=== PATIENT | female | born 1990 | race Caucasian/White ===

== ENCOUNTER 2018-01-17 07:28 | Emergency (ER) | payer OTHER ==
--- NOTE | 2018-01-17 07:38 | EDM.PDOC ---
ED HPI GENERAL MEDICAL PROBLEM - General Stated Complaint: 10 WKS PG, BLEEDING Time Seen by Provider: 01/17/18 07:45 Source of Information: Reports: Patient, RN, RN Notes Reviewed History Limitations: Reports: No Limitations - History of Present Illness INITIAL COMMENTS - FREE TEXT/NARRATIVE: Pt presents to the ER with c/o vaginal bleeding at 10 weeks . Patient states she feels she began bleeding during the night while she was sleeping. This morning she states there was a "gush" of blood. Patient denies wearing a pad at this time. Patient states she is anxious, normally takes Zoloft, but has not taken it in 2 days. Patient states she has been seen at [facility] on Jan 02 and an ultrasound was done. She states she is scheduled to see Dr. Thomas next week Saturday. Patient denies cramping. Patient also denies any further health problems. Patient states she was taking Welbutrin, which she stopped taking a few weeks ago. Onset: Today, Sudden - Related Data Allergies Allergy/AdvReac Type Severity Reaction Status Date / Time No Known Allergies Allergy Verified 01/17/18 07:48 Home Meds: Home Meds FLUoxetine HCl [Fluoxetine HCl] 20 mg PO DAILY 01/17/18 [History] ED ROS GENERAL - Review of Systems Review Of Systems: ROS reveals no pertinent complaints other than HPI. ED EXAM - Physical Exam Exam: See Below Exam Limited By: No Limitations General Appearance: Alert, WD/WN, No Apparent Distress, Anxious Eye Exam: Bilateral Eye: EOMI, Normal Inspection Ears: Normal External Exam, Hearing Grossly Normal Nose: Normal Inspection Throat/Mouth: Normal Inspection, Normal Voice, No Airway Compromise Head: Atraumatic, Normocephalic Neck: Normal Inspection, Supple, Non-Tender, Full Range of Motion Respiratory/Chest: No Respiratory Distress, Lungs Clear, Normal Breath Sounds, No Accessory Muscle Use, Chest Non-Tender Cardiovascular: Normal Peripheral Pulses, Regular Rate, Rhythm, No Edema, No Gallop, No JVD, No Murmur, No Rub GI/Abdominal Exam: Normal Bowel Sounds, Soft, Non-Tender, No Organomegaly, No Distention Rectal Exam: Deferred Back Exam: Normal Inspection, Full Range of Motion Extremities: Normal Inspection, Normal Range of Motion, Non-Tender, No Pedal Edema, Normal Capillary Refill Neurological: Alert, Oriented Psychiatric: Anxious Skin Exam: Warm, Dry, Intact, Normal Color, No Rash Lymphatic: No Adenopathy Course - Vital Signs Last Recorded V/S: Last Vital Signs Temp 99.1 F 01/17/18 07:31 Pulse 105 H 01/17/18 07:31 Resp 15 01/17/18 07:31 BP 135/84 01/17/18 07:31 Pulse Ox 96 01/17/18 07:31 - Orders/Labs/Meds Orders: Active Orders 24 hr Category Date Time Status DRUG SCREEN URINE BIORAD [URCHEM] Stat Lab 01/17/18 08:22 Ordered UA W/MICROSCOPIC [URIN] Stat Lab 01/17/18 08:22 Ordered Labs: Laboratory Tests 01/17/18 01/17/18 01/17/18 Range/Units 07:58 07:58 07:58 WBC 7.5 (5.0-10.0) 10^3/uL RBC 4.23 (4.2-5.4) 10^6/uL Hgb 11.9 L (12.0-16.0) g/dL Hct 35.4 L (37.0-47.0) % MCV 83.7 (80-100) fL MCH 28.1 (27.0-34.0) pg MCHC 33.6 (33.0-35.0) g/dL Plt Count 283 (150-450) 10^3/uL Neut % (Auto) 74.6 (42.2-75.2) % Lymph % (Auto) 17.2 L (20.5-50.1) % [place] % (Auto) 7.0 (2-8) % Eos % (Auto) 1.1 (1.0-3.0) % Baso % (Auto) 0.1 (0.0-1.0) % Sodium 135 (135-145) mmol/L Potassium 3.6 (3.6-5.0) mmol/L Chloride 105 (101-111) mmol/L Carbon Dioxide 22.0 (21.0-31.0) mmol/L Anion Gap 11.6 BUN 9 (7-18) mg/dL Creatinine 0.4 L (0.6-1.3) mg/dL Est Cr Clr Drug Dosing 154.43 mL/min Estimated GFR (MDRD) > 60 BUN/Creatinine Ratio 22.50 Glucose 90 (74-105) mg/dL Calcium 8.9 (8.4-10.2) mg/dl Total Bilirubin 0.3 (0.2-1.0) mg/dL AST 24 (10-42) IU/L ALT 19 (10-60) IU/L Alkaline Phosphatase 43 (42-121) IU/L Total Protein 7.0 (6.7-8.2) g/dl Albumin 4.0 (3.2-5.5) g/dl Globulin 3.0 Albumin/Globulin Ratio 1.33 HCG, Quant > 1358 H (0-25) mIU/ml Beta HCG, Quant 57316 mIU/ml Urine Color (YELLOW) Urine Appearance (CLEAR) Urine pH (5.0-9.0) Ur Specific [place] (1.005-1.030) Urine Protein (NEGATIVE) Urine Glucose (UA) (NEGATIVE) Urine Ketones (NEGATIVE) Urine Occult Blood (NEGATIVE) Urine Nitrite (NEGATIVE) Urine Bilirubin (NEGATIVE) Urine Urobilinogen (0.2-1.0) mg/dL Ur Leukocyte Esterase (NEGATIVE) Urine RBC /HPF Urine WBC (0-5/HPF) /HPF Ur Epithelial Cells /HPF Urine Bacteria (0-FEW/HPF) /HPF Urine Opiates Screen (NEGATIVE) Ur Oxycodone Screen (NEGATIVE) Urine Methadone Screen (NEGATIVE) Ur Barbiturates Screen (NEGATIVE) U Tricyclic Antidepress (NEGATIVE) Ur Phencyclidine Scrn (NEGATIVE) Ur Amphetamine Screen (NEGATIVE) U Methamphetamines Scrn (NEGATIVE) Urine MDMA Screen (NEGATIVE) U Benzodiazepines Scrn (NEGATIVE) Urine Cocaine Screen (NEGATIVE) U Marijuana (THC) Screen (NEGATIVE) Ethyl Alcohol < 5 mg/dL 01/17/1818 Range/Units 08:22 08:22 WBC (5.0-10.0) 10^3/uL RBC (4.2-5.4) 10^6/uL Hgb (12.0-16.0) g/dL Hct (37.0-47.0) % MCV (80-100) fL MCH (27.0-34.0) pg MCHC (33.0-35.0) g/dL Plt Count (150-450) 10^3/uL Neut % (Auto) (42.2-75.2) % Lymph % (Auto) (20.5-50.1) % [place] % (Auto) (2-8) % Eos % (Auto) (1.0-3.0) % Baso % (Auto) (0.0-1.0) % Sodium (135-145) mmol/L Potassium (3.6-5.0) mmol/L Chloride (101-111) mmol/L Carbon Dioxide (21.0-31.0) mmol/L Anion Gap BUN (7-18) mg/dL Creatinine (0.6-1.3) mg/dL Est Cr Clr Drug Dosing mL/min Estimated GFR (MDRD) BUN/Creatinine Ratio Glucose (74-105) mg/dL Calcium (8.4-10.2) mg/dl Total Bilirubin (0.2-1.0) mg/dL AST (10-42) IU/L ALT (10-60) IU/L Alkaline Phosphatase (42-121) IU/L Total Protein (6.7-8.2) g/dl Albumin (3.2-5.5) g/dl Globulin Albumin/Globulin Ratio HCG, Quant (0-25) mIU/ml Beta HCG, Quant mIU/ml Urine Color Yellow (YELLOW) Urine Appearance Clear (CLEAR) Urine pH 7.0 (5.0-9.0) Ur Specific [place] 1.010 (1.005-1.030) Urine Protein Negative (NEGATIVE) Urine Glucose (UA) Negative (NEGATIVE) Urine Ketones Negative (NEGATIVE) Urine Occult Blood Small H (NEGATIVE) Urine Nitrite Negative (NEGATIVE) Urine Bilirubin Negative (NEGATIVE) Urine Urobilinogen 0.2 (0.2-1.0) mg/dL Ur Leukocyte Esterase Negative (NEGATIVE) Urine RBC 0-5 /HPF Urine WBC Not seen (0-5/HPF) /HPF Ur Epithelial Cells Few /HPF Urine Bacteria Not seen (0-FEW/HPF) /HPF Urine Opiates Screen Negative (NEGATIVE) Ur Oxycodone Screen Negative (NEGATIVE) Urine Methadone Screen Negative (NEGATIVE) Ur Barbiturates Screen Negative (NEGATIVE) U Tricyclic Antidepress Negative (NEGATIVE) Ur Phencyclidine Scrn Negative (NEGATIVE) Ur Amphetamine Screen Negative (NEGATIVE) U Methamphetamines Scrn Negative (NEGATIVE) Urine MDMA Screen Negative (NEGATIVE) U Benzodiazepines Scrn Negative (NEGATIVE) Urine Cocaine Screen Negative (NEGATIVE) U Marijuana (THC) Screen Negative (NEGATIVE) Ethyl Alcohol mg/dL Departure - Departure Time of Disposition: 09:03 Disposition: Home, Self-Care 01 Condition: Fair Clinical Impression: Threatened - Discharge Information *PRESCRIPTION DRUG MONITORING PROGRAM REVIEWED*: No *COPY OF PRESCRIPTION DRUG MONITORING REPORT IN PATIENT YOSELIN: No Instructions: Vaginal Bleeding During , First Trimester Additional Instructions: Follow up with Dr. Mullen today at [facility] - My Orders Last 24 Hours: My Active Orders 01/17/18 08:22 DRUG SCREEN URINE BIORAD [URCHEM] Stat UA W/MICROSCOPIC [URIN] Stat - Assessment/Plan Last 24 Hours: My Active Orders 01/17/18 08:22 DRUG SCREEN URINE BIORAD [URCHEM] Stat UA W/MICROSCOPIC [URIN] Stat
[2018-01-17 08:28] LABS: ANION GAP 11.6; CHLORIDE,CL 105 mmol/L (101-111); SODIUM,NA 135 mmol/L (135-145)
== END 2018-01-17 09:11 | disposition home or self-care (01) ==
LOC: DL.ED 07:28
DX: O20.0 Threatened abortion (principal); Z3A.10 10 weeks gestation of pregnancy; Z79.899 Other long term (current) drug therapy
CPT/HCPCS: 36415; 80053; 80305; 81001; 84702; 85025; 99284; G0480; 99283

== ENCOUNTER 2018-07-20 01:46 | Inpatient (IN) | payer OTHER ==
[2018-07-20] MEDS ORDERED: fentaNYL 100 MCG/2 ML SDV IVPUSH PRN (04:04)
[2018-07-20] MEDS ORDERED: Acetaminophen 325 MG Tab PO PRN ×2 (04:04→21:51)
[2018-07-20] MEDS ORDERED: Carboprost Tromethamine 250 MCG/1 ML Amp IM PRN (04:04)
[2018-07-20] MEDS ORDERED: Tranexamic Acid 1,000 MG in Sodium Chloride 0.9% 100 ML IV PRN ×3 (04:04→21:51)
[2018-07-20] MEDS ORDERED: Sodium Chloride 0.9% 10 ML Syringe FLUSH PRN ×2 (04:04→17:03)
[2018-07-20] MEDS ORDERED: Lactated Ringers 1,000 ML IV ONE (04:04)
[2018-07-20] MEDS ORDERED: Methylergonovine 0.2 MG/1 ML Amp IM PRN ×2 (04:04→21:51)
[2018-07-20] MEDS ORDERED: Misoprostol 400 MCG (4 X 100 MCG TAB) RECTAL PRN ×2 (04:04→21:51)
[2018-07-20] MEDS ORDERED: Ondansetron 4 MG/2 ML SDV IV PRN ×2 (04:04→21:51)
[2018-07-20] MEDS ORDERED: Lidocaine 1% 30 ML SDV INJECT PRN (04:04)
[2018-07-20] MEDS ORDERED: Lactated Ringers 1,000 ML IV SCH ×3 (04:15→21:51)
[2018-07-20] MEDS ORDERED: Oxytocin/Normal Saline 30 UNIT/500 ML BAG IV SCH ×2 (04:15→09:30)
[2018-07-20] MEDS: Lactated Ringers 1,000 ML IV SCH ×4 (06:12→17:07)
[2018-07-20] MEDS ORDERED: EPINEPHrine 1 MG/ML SDV ONE ×2 (07:04→13:21)
[2018-07-20] MEDS ORDERED: fentaNYL 100 MCG/2 ML SDV ONE (07:04)
--- NOTE | 2018-07-20 07:58 | PCM.PRNOTE ---
- Free Text/Narrative Note: Requested to provide analgesia to full term patient in severe pain. Upon entering the room, patient is sitting on edge of bed complaining of severe abdominal/pelvic pain and discomfort. Procedure was discussed with patient including adverse outcomes and expectations. Pt consented to analgesia, SAB/ IT. Pt placed into a proper sitting position. Landmarks for SAB/IT were identified and marked. Hands were washed and appropriate PPE was applied. Back was prepped with betadine x3. A sterile, transparent, fenestrated drape was applied. Excess betadine was removed. Using 3 mL of a 1% lidocaine solution , a skin wheel was placed at the L2/L3 interspace. A 24 ga (4 inch) Pencan spinal needle was inserted until positive for CSF. Negative for heme or paresthesias. Injected fentanyl 30 mcg, sufentanil 25 mcg, and 5.6 mg of a 0.75 % bupivacaine solution with an epi wash. Pt was placed left lateral position for approximately 20 minutes. There were zero complications or adverse outcomes. Will continue to monitor. Procedure Date & Time: 07/20/18 [id number]
--- NOTE | 2018-07-20 11:22 | PCM.SN ---
- Free Text/Narrative Note: OB History and Physical 07/20/18 Chief Complaint: leaking fluid HPI: Purvi is a 27 year old at 37w0d (MELLO 08/10/18) who presents with complaints of leaking of fluid for the last 2 days. She has been wearing panty liners and pads to absorb the leaking. She has been cramping since her last appointment, but they have become more regular and more painful. She reports active movement. Nitrazine was positive and amnisure was sent for confirmation of SROM. She was found to be ruptured and rosario regularly on the monitor. ROS: Negative for headache, nausea, vomiting, diarrhea, fever, chills, hematuria , dysuria or bleeding per vagina. Medical Hx: acne, short stature Surgical Hx: none Family Hx: no history of bleeding/clotting disorders, defects, cystic fibrosis or down syndrome OB Hx: G1 Labs: OB Panel: Blood Type: A Positive Rubella: Immune HBSAg: Nonreactive GBS: Negative Gonorrhea/Chlamydia: Negative HIV: Nonreactive RPR: Nonreactive Physical Exam: HR: 116, BP 140/80, O2sat 97% on room air Gen: No distress CV: Well-perfused, 2+ distal pulses, regular rate and rhythm, no audible murmurs Resp: Non-labored, symmetrical chest expansion, clear to auscultation Abd: gravid, soft, non tender Ext: Moves all extremities, no edema. SVE: 4.5/50/-3 FHT: 135, moderate variability, accelerations present, no decelerations CTX: Q 2-3 mins Assessment: Purvi is a 27 year old at 37w0d (MELLO 08/10/18) who presents with complaints of leaking of fluid for the last 2 days and was found to be ruptured and in active labor. Cat I Strip. Plan: - admit for labor - routine cares - patient may have intrathecal when/if desired
[2018-07-20] MEDS ORDERED: Bupivacaine 0.75%/D5W 2 ML Amp ONE (13:21)
--- NOTE | 2018-07-20 14:07 | PCM.PRNOTE ---
- Free Text/Narrative Note: Requested to provide analgesia to full term patient in severe pain. Upon entering the room, patient is lying in bed complaining of severe abdominal/ pelvic pain and discomfort. Procedure was rediscussed with patient including adverse outcomes and expectations, again. Pt consented to analgesia, SAB/IT. Pt placed into a proper sitting position. Landmarks for SAB/IT were identified and marked. Hands were washed and appropriate PPE was applied. Back was prepped with betadine x3. A sterile, transparent, fenestrated drape was applied. Excess betadine was removed. Using 3 mL of a 1% lidocaine solution, a skin wheel was placed at the L2/L3 interspace. A 24 ga (4 inch) Pencan spinal needle was inserted until positive for CSF. Negative for heme or paresthesias. Injected sufentanil 10 mcg, and 9 mg of a 0.75% bupivacaine solution with an epi wash. Pt was placed left lateral position for approximately 20 minutes. There were zero complications or adverse outcomes. Will continue to monitor. Procedure Date & Time: 07/20/18 [id number]
[2018-07-20] MEDS ORDERED: Citric Acid/Sodium Citrate Solution 30 ML Cup PO ONE (17:03)
[2018-07-20] MEDS ORDERED: ceFAZolin 2 GM in Premix Bag 1 BAG IV ONE (17:03)
--- NOTE | 2018-07-20 17:11 | PCM.SN ---
- Free Text/Narrative Note: Sub: Patient is starting to have more back pain as her second intrathecal is wearing off. She is emotionally drained at this time. Obj: Vitals reviewed and stable NST: FHR 150, moderate variability, variable decelerations, accelerations noted Contractions: coupling every 3-5 minutes SVE: 6/100/-2 Ass: Purvi is a 37w0d G1 who presented with SROM and had progressed with augmentation of pitocin to 8cm dilation who is now back to 6cm dilation. Plan: Discussed delivery options with Purvi including risks, benefits and alternatives. Will proceed with primary low transverse section for failure to progress in first stage of .
[2018-07-20] MEDS ORDERED: Oxytocin/Normal Saline 60 UNIT/1,000 ML BAG ONE (17:19)
--- NOTE | 2018-07-20 19:04 | PCM.PRNOTE ---
- Free Text/Narrative Note: OPERATIVE REPORT Date: 07/20/18 Procedure: Primary low transverse section Start: 1749 Stop: 1824 Surgeon: Rosy Thomas MD Police Liaison Officer: Dr. Mancilla Pre-Operative Diagnosis: 27 year old at 37w0d EGA Unknown SROM time Failure to progress in labor Post-Operative Diagnosis: same as above s/p section Anesthesia: Spinal Specimens: none Complications: none apparent Drains: almeida catheter with clear urine output EBL: 500 mL IVF: see CLIENT CARE SPECIALIST documentation Findings: male , OP presentation, face presentation at uterine incision, nuchal x1 Indication for Procedure: failure to progress Procedure in Detail: The patient was brought to the operating room where spinal anesthesia was administered. She was then prepped and draped in routine fashion in dorsal supine position with a leftward tilt. Almeida catheter and SCDs were placed. Incision was made through the skin and carried sharply to the level of the fascia, which was then incised transversely in the midline. This incision was then carried bilaterally with scissors. The fascia was tented up with Hoa clamps and dissected off the underlying rectus musculature with sharp and blunt technique in both the superior and inferior direction. The rectus musculature was then in the midline and the peritoneum was entered in the midline with care being taken to avoid any underlying bowel and/or bladder tissue. The operative opening was then extended with manual traction. The peritoneal reflection was identified and the bladder was dissected off the lower uterine segment with sharp and blunt technique. The lower uterine segment was incised transversely in the midline to the level of the amniotic sac with clear fluid, then bluntly widened. The infants head was elevated out of the maternal pelvis and was delivered through the incision. The remainder of the infant was then delivered. Bulb suctioning was performed on the operative field. The cord was clamped and cut in standard fashion and then the infant was handed over to the awaiting nursery staff. The placenta was delivered via gentle traction on umbilical cord with concomitant uterine massage followed by manual extraction. The uterus was cleared of remaining products of conception with a dry lap. The uterine incision was closed with a interlocking layer of 0-Vicryl followed by an imbricating layer of the same material. The incision was inspected and complete hemostasis was achieved. The abdomen was then cleared of clot and debris. Hemostasis of all incised surfaces was confirmed. The fascia was then closed with 0-PDS. It was ensured that no underlying abdominal contents were closed in the incision. The skin closed with 4-0 Monocryl on a John needle. The patient did receive Ancef preoperatively. Sponge and instrument counts were reported as correct times two. Patient tolerated procedure well and was taken to PACU in stable condition.
[2018-07-20] MEDS ORDERED: diphenhydrAMINE 50 MG/ML SDV IVPUSH PRN (21:51)
[2018-07-20] MEDS ORDERED: ePHEDrine 50 MG/ML SDV IVPUSH PRN (21:51)
[2018-07-20] MEDS ORDERED: Acetaminophen/oxyCODONE 325-5 MG Tab PO PRN (21:51)
[2018-07-20] MEDS ORDERED: Carboprost Tromethamine 250 MCG/1 ML Amp IM ONE (21:51)
[2018-07-20] MEDS ORDERED: Naloxone 2 MG/2 ML Syringe IVPUSH PRN (21:51)
[2018-07-21] MEDS: Ketorolac 30 MG/ML SDV IVPUSH SCH ×3 (00:25→13:08)
[2018-07-21] MEDS: Simethicone 80 MG Tab.Chew PO SCH ×5 (01:25→21:24)
[2018-07-21] MEDS ORDERED: Calcium Carbonate 500 MG Tab.Chew PO PRN (04:02)
--- NOTE | 2018-07-21 08:18 | PCM.SN ---
<Judi Joyce - Last Filed: 07/21/18 17:14> - Free Text/Narrative Note: Date of Service: 07/21/18 Subjective: Today is POD#1 for Purvi, a 28yo G1 now P1001 s/p LTCS with subsequent delivery of healthy baby female. She still has her vasquez catheter in and has not been ambulating. Tolerating diet well, although felt nauseous last night. Has some incisional pain and uterine cramping, worse when . Although, the pain is controlled with current oral medications. She denies any fever, chills, chest pain, shortness of breath. Is on demand, and states baby has a good latch and is not painful. Objective: Vitals: T 99.7F, P 107, R 16, BP 98/43, O2 100% General: Well appearing female, sitting upright in bed baby, in no apparent distress HEENT: EOMI, mucus membranes pink and moist Neck: Supple Cardio: RRR, no murmurs, rubs or gallops Resp: Lungs CTA b/l, no wheezing or rhonchi Abdomen: Tenderness near incision. No erythema or edema noted. Dressing intact and dry. Uterus 2 fingerbreadths above the umbilicus and firm. Extremities: Pedal edema. No bruising or cyanosis. SCD's in place. Labs: Laboratory Tests 07/21/18 06:25 WBC 14.2 H RBC 2.97 L Hgb 8.5 L D Hct 25.7 L MCV 86.5 Plt Count 190 D Assessment: 1. 28 yo POD#1 s/p primary LTCS 2. A+, GBS-, RI 3. 4. Anemia 5. Pedal Edema Plan: 1. Continue routine cares 2. D/C vasquez this AM 3. Encouraged ambulation, will help with pedal edema 4. Continue 5. Watching for symptoms of anemia (dizziness, lightheaded) especially while ambulating. 6. Anticipate discharge tomorrow or Saturday Stacyjosey Maria Del Carmen, MS-4 <Rosy Thomas - Last Filed: 07/23/18 09:04> - Free Text/Narrative Note: Patient was personally seen and examined with the medical student. I reviewed the noted scribed on my behalf and necessary changes have been made to reflect my opinion on the history, exam, assessment, and plan. - Rosy Thomas MD
[2018-07-21] MEDS: Docusate Sodium 100 MG Cap PO PRN ×2 (08:51→21:24)
[2018-07-21] MEDS: Prenatal Multivitamin with Calcium/Folic Acid/Iron Tab PO SCH (08:51)
[2018-07-21] MEDS ORDERED: Oxytocin/Normal Saline 30 UNIT/500 ML BAG IV ONE (10:46)
[2018-07-21] MEDS: Acetaminophen/oxyCODONE 325-5 MG Tab PO PRN ×3 (11:15→21:23)
[2018-07-21] MEDS ORDERED: Bupivacaine 0.75%/D5W 2 ML Amp ONE ×3 (14:57→16:46)
[2018-07-21] MEDS ORDERED: Lactated Ringers 1,000 ML IV ONE (14:57)
[2018-07-21] MEDS ORDERED: Ketorolac 30 MG/ML SDV IVPUSH ONE (14:57)
[2018-07-21] MEDS ORDERED: EPINEPHrine 1 MG/ML SDV ONE ×2 (14:57→16:46)
[2018-07-21] MEDS ORDERED: Ondansetron 4 MG/2 ML SDV IV ONE (14:57)
--- NOTE | 2018-07-21 15:47 | PCM.SN ---
- Free Text/Narrative Note: Postoperative Day #1 Progress Note S: The patient reports that she is doing well overall. She is not yet ambulating. Her pain is well controlled and reports that her bleeding is minimal. She is tolerating her diet without issue. She is passing flatus. She is without problem. No nausea, vomiting, diarrhea, shortness of breath, or other complaints. O: Physical exam: Vitals stable Gen: No distress CV: Well-perfused, 2+ distal pulses Resp: Non-Labored, symmetrical chest expansion Abd: Incision is clean, dry, and intact. Fundus is firm and below umbilicus. Ext: Moves all extremities. Assessment: Purvi is a 27 year old G1 now P1 status post primary low transverse ( POD#1) who is doing well. Plan: - Encourage ambulation. - Will allow to shower when ambulating without assistance - Remove vasquez when ambulating. - Advance diet - Routine Nursing Rosy Thomas MD
[2018-07-21] MEDS ORDERED: fentaNYL 100 MCG/2 ML SDV ITHECAL ONE (16:46)
[2018-07-21] MEDS: Ibuprofen 800 MG Tab PO PRN (21:23)
[2018-07-22] MEDS: Acetaminophen/oxyCODONE 325-5 MG Tab PO PRN ×5 (02:59→21:04)
[2018-07-22] MEDS: Docusate Sodium 100 MG Cap PO PRN ×2 (08:53→21:03)
[2018-07-22] MEDS: Simethicone 80 MG Tab.Chew PO SCH ×4 (08:53→21:03)
[2018-07-22] MEDS: Ibuprofen 800 MG Tab PO PRN ×2 (08:53→17:27)
[2018-07-22] MEDS: Prenatal Multivitamin with Calcium/Folic Acid/Iron Tab PO SCH (08:53)
--- NOTE | 2018-07-22 17:28 | PCM.PN ---
<Aiyana Joycejosey - Last Filed: 07/22/18 17:23> - General Info Date of Service: 07/22/18 Subjective Update: POD #2 for Purvi, a 28 yo G1 now P1 s/p primary LTCS for malpresentation and failure to progress. She has been ambulating and showered yesterday. is going well, although is cluster feeding causing some nipple pain. She has been using a breastshield today. Tolerating diet well. Passing flatus. Some incisional pain,b ut well controlled on oral medications. No acute concerns. Functional Status: Reports: Pain Controlled, Tolerating Diet, Ambulating - Review of Systems General: Denies: Fever, Weakness, Chills Pulmonary: Denies: Shortness of Breath, Cough, Wheezing Cardiovascular: Denies: Chest Pain Gastrointestinal: Reports: Flatus. Denies: Constipation Genitourinary: Denies: Dysuria, Frequency, Burning Neurological: Denies: Dizziness, Headache - Patient Data Vitals - Most Recent: Last Vital Signs Temp 98.6 F 07/22/18 12:00 Pulse 104 H 07/22/18 12:00 Resp 16 07/22/18 12:00 BP 113/73 07/22/18 12:00 Pulse Ox 96 07/22/18 12:00 Weight - Most Recent: 58.513 kg Med Orders - Current: Current Medications Acetaminophen (Tylenol) 650 mg PO Q6H PRN PRN Reason: mild pain or fever Calcium Carbonate/Glycine (Tums) 1,000 mg PO Q2H PRN PRN Reason: Heartburn Last Admin: 07/21/18 05:14 Dose: 1,000 mg Diphenhydramine HCl (Benadryl) 25 mg IVPUSH Q6H PRN PRN Reason: Itching or Nausea Docusate Sodium (Colace) 100 mg PO Q12H PRN PRN Reason: Constipation Last Admin: 07/22/18 08:53 Dose: 100 mg Ephedrine Sulfate (Ephedrine Sulfate) 5 mg IVPUSH SEECOMMENT PRN PRN Reason: Other Lactated Ringer's (Ringers, Lactated) 1,000 mls @ 125 mls/hr IV ASDIRECTED AGUSTIN Last Admin: 07/21/18 00:27 Dose: 125 mls/hr Tranexamic Acid 1,000 mg/ (Sodium Chloride) 110 mls @ 660 mls/hr IV ONETIME PRN PRN Reason: Bleeding Ibuprofen (Motrin) 800 mg PO Q8H PRN PRN Reason: mild pain or fever Last Admin: 07/22/18 08:53 Dose: 800 mg Ondansetron HCl (Zofran) 4 mg IV Q4H PRN PRN Reason: Nausea/Vomiting Oxycodone/Acetaminophen (Percocet 325-5 Mg) 1 tab PO Q4H PRN PRN Reason: Pain (moderate 4-6) Last Admin: 07/20/18 22:07 Dose: 1 tab Oxycodone/Acetaminophen (Percocet 325-5 Mg) 2 tab PO Q4H PRN PRN Reason: Pain (moderate 4-6) Last Admin: 07/22/18 13:17 Dose: 2 tab Prenat Multivit/[place]/Iron/Folic Ac ( Plus Iron) 1 each PO DAILY [facility] Last Admin: 07/22/18 08:53 Dose: 1 each Simethicone (Simethicone) 160 mg PO QID [facility] Last Admin: 07/22/18 13:17 Dose: 160 mg Discontinued Medications Acetaminophen (Tylenol) 650 mg PO Q4H PRN PRN Reason: Pain (Mild 1-3) and fever Bupivacaine HCl/Dextrose (Marcaine 0.75% Spinal) Confirm Administered Dose 2 ml .ROUTE .STK-MED ONE Stop: 07/20/18 13:22 Last Admin: 07/20/18 15:00 Dose: Not Given Bupivacaine HCl/Dextrose (Marcaine 0.75% Spinal) 1.7 ml .XX .STK-MED ONE Stop: 07/21/18 14:58 Bupivacaine HCl/Dextrose (Marcaine 0.75% Spinal) 1.2 ml .XX .STK-MED ONE Stop: 07/21/18 14:58 Bupivacaine HCl/Dextrose (Marcaine 0.75% Spinal) 0.75 ml .XX .STK-MED ONE Stop: 07/21/18 16:47 Carboprost Tromethamine (Hemabate Ds) 250 mcg IM ASDIRECTED PRN PRN Reason: HEMORRHAGE Carboprost Tromethamine (Hemabate Ds) 250 mcg IM ONETIME ONE Stop: 07/20/18 21:52 Last Admin: 07/21/18 05:59 Dose: Not Given Citric Acid/Sodium Citrate (Bicitra Solution) 30 ml PO ONETIME ONE Stop: 07/20/18 17:04 Epinephrine HCl (Adrenalin) Confirm Administered Dose 1 mg .ROUTE .STK-MED ONE Stop: 07/20/18 07:05 Last Admin: 07/20/18 08:07 Dose: Not Given Epinephrine HCl (Adrenalin) Confirm Administered Dose 1 mg .ROUTE .STK-MED ONE Stop: 07/20/18 13:22 Last Admin: 07/20/18 15:00 Dose: Not Given Epinephrine HCl (Adrenalin) 0.1 mg .XX .STK-MED ONE Stop: 07/21/18 14:58 Epinephrine HCl (Adrenalin) 0.1 mg .XX .STK-MED ONE Stop: 07/21/18 16:47 Fentanyl (Sublimaze) 50 mcg IVPUSH Q1H PRN PRN Reason: Pain (moderate 4-6) Fentanyl (Sublimaze) Confirm Administered Dose 100 mcg .ROUTE .STK-MED ONE Stop: 07/20/18 07:05 Last Admin: 07/20/18 08:08 Dose: Not Given Fentanyl (Sublimaze) 30 mcg ITHECAL .STK-MED ONE Stop: 07/21/18 16:47 Lactated Ringer's (Ringers, Lactated) 1,000 mls @ 125 mls/hr IV ASDIRECTED AGUSTIN Last Admin: 07/20/18 17:07 Dose: 125 mls/hr Lactated Ringer's (Ringers, Lactated) 1,000 mls @ 999 mls/hr IV .BOLUS ONE Stop: 07/20/18 05:04 Lactated Ringer's (Ringers, Lactated) 1,000 mls @ 125 mls/hr IV ASDIRECTED AGUSTIN Oxytocin/Sodium Chloride (Pitocin In Ns 30 Unit/500 Ml) 30 unit in 500 mls @ 2 mls/hr IV TITRATE AGUSTIN; Protocol Last Titration: 07/20/18 17:15 Dose: 0 munits/min, 0 mls/hr Tranexamic Acid 1,000 mg/ (Sodium Chloride) 110 mls @ 660 mls/hr IV ONETIME PRN PRN Reason: Bleeding Oxytocin/Sodium Chloride (Pitocin In Ns 30 Unit/500 Ml) 30 unit in 500 mls @ 2 mls/hr IV TITRATE AGUSTIN; Protocol Last Titration: 07/20/18 21:40 Dose: 0 mls/hr Tranexamic Acid 1,000 mg/ (Sodium Chloride) 110 mls @ 660 mls/hr IV ONETIME PRN PRN Reason: Bleeding Cefazolin Sodium/Dextrose 2 gm (/ Premix) 50 mls @ 100 mls/hr IV ONETIME ONE Stop: 07/20/18 17:32 Last Admin: 07/20/18 17:34 Dose: 100 mls/hr Lactated Ringer's (Ringers, Lactated) 1,000 mls @ 999 mls/hr IV .BOLUS [facility] Oxytocin/Sodium Chloride (Pitocin In Ns 30 Unit/500 Ml) Confirm Administered Dose 60 unit in 1,000 mls @ as directed .ROUTE .STK-MED ONE Stop: 07/20/18 17:20 Oxytocin/Sodium Chloride (Pitocin In Ns 30 Unit/500 Ml) 30 unit in 500 mls @ as directed IV .STK-MED ONE Stop: 07/21/18 10:47 Lactated Ringer's (Ringers, Lactated) 1,000 mls @ as directed IV .STK-MED ONE Stop: 07/21/18 14:58 Ketorolac Tromethamine (Toradol) 15 mg IVPUSH Q6H AGUSTIN Stop: 07/21/18 12:31 Last Admin: 07/21/18 13:08 Dose: 15 mg Ketorolac Tromethamine (Toradol) 30 mg IVPUSH .STK-MED ONE Stop: 07/21/18 14:58 Lidocaine HCl (Xylocaine-Mpf 1%) 30 ml INJECT ASDIRECTED PRN PRN Reason: Perineal Repair Lidocaine HCl (Xylocaine-Mpf 1%) 3 ml INJECT .STK-MED ONE Stop: 07/21/18 14:58 Lidocaine HCl (Xylocaine-Mpf 1%) 3 ml INJECT .STK-MED ONE Stop: 07/21/18 16:47 Methylergonovine Maleate (Methergine) 0.2 mg IM ASDIRECTED PRN PRN Reason: Hemorrhage Methylergonovine Maleate (Methergine) 0.2 mg IM ONETIME PRN PRN Reason: Excessive Vaginal Bleeding Misoprostol (Cytotec) 800 mcg RECTAL ASDIRECTED PRN PRN Reason: Hemorrhage Misoprostol (Cytotec) 800 mcg RECTAL ASDIRECTED PRN PRN Reason: Excessive bleeding Naloxone HCl (Narcan) 0.1 mg IVPUSH SEECOMMENT PRN PRN Reason: Respiratory Depression Ondansetron HCl (Zofran) 4 mg IV Q4H PRN PRN Reason: Nausea/Vomiting Ondansetron HCl (Zofran) 4 mg IV .STK-MED ONE Stop: 07/21/18 14:58 Sodium Chloride (Saline Flush) 10 ml FLUSH ASDIRECTED PRN PRN Reason: Keep Vein Open Sodium Chloride (Saline Flush) 10 ml FLUSH ASDIRECTED PRN PRN Reason: Keep Vein Open Sufentanil Citrate (Sufenta) Confirm Administered Dose 50 mcg .ROUTE .STK-MED ONE Stop: 07/20/18 07:05 Last Admin: 07/20/18 08:08 Dose: Not Given Sufentanil Citrate (Sufenta) Confirm Administered Dose 50 mcg .ROUTE .STK-MED ONE Stop: 07/20/18 13:22 Last Admin: 07/20/18 15:00 Dose: Not Given Sufentanil Citrate (Sufenta) 10 mcg ITHECAL .STK-MED ONE Stop: 07/21/18 14:58 Sufentanil Citrate (Sufenta) 25 mcg ITHECAL .STK-MED ONE Stop: 07/21/18 16:47 - Exam General: Alert, Oriented, Cooperative, No Acute Distress HEENT: EOMI, Mucous Membr. Moist/[place] Neck: Supple Lungs: Clear to Auscultation, Normal Respiratory Effort. No: Crackles, Rhonchi , Wheezing Cardiovascular: Regular Rate, Regular Rhythm. No: No Murmurs GI/Abdominal Exam: Normal Bowel Sounds, Soft, Non-Tender, No Distention (Female) Exam: Fundal Height (Fundus firm and at the level of the umbilicus) Skin: Warm, Dry Wound/Incisions: Healing Well, No Drainage - Problem List & Annotations (1) S/P section SNOMED Code(s): 690518825, 071967716 Code(s): Z98.891 - HISTORY OF UTERINE SCAR FROM PREVIOUS SURGERY Status: Acute Current Visit: Yes (2) Anemia SNOMED Code(s): 272189634 Code(s): D64.9 - ANEMIA, UNSPECIFIED Status: Acute Current Visit: Yes Qualifiers: Anemia type: other cause - Problem List Review Problem List Initiated/Reviewed/Updated: Yes - Assessment Assessment:: 28 y/o 37w0d EGA s/p primary C/S with delivery of term male - Plan Plan:: 1. Continue routine cares. 2. Encourage and have LC stop by for consult 3. Continuing to monitor for signs of anemia (dizziness, light headedness) 4. Anticipate discharge tomorrow. <Rosy Thomas - Last Filed: 07/23/18 09:04> - Patient Data Vitals - Most Recent: Last Vital Signs Temp 98.6 F 07/23/18 03:52 Pulse 89 07/23/18 03:52 Resp 18 07/23/18 03:52 BP 128/74 07/23/18 03:52 Pulse Ox 98 07/23/18 03:52 Med Orders - Current: Current Medications Acetaminophen (Tylenol) 650 mg PO Q6H PRN PRN Reason: mild pain or fever Bisacodyl (Dulcolax) 10 mg RECTAL DAILY PRN PRN Reason: Constipation Last Admin: 07/23/18 05:51 Dose: 10 mg Calcium Carbonate/Glycine (Tums) 1,000 mg PO Q2H PRN PRN Reason: Heartburn Last Admin: 07/21/18 05:14 Dose: 1,000 mg Diphenhydramine HCl (Benadryl) 25 mg IVPUSH Q6H PRN PRN Reason: Itching or Nausea Docusate Sodium (Colace) 100 mg PO Q12H PRN PRN Reason: Constipation Last Admin: 07/22/18 21:03 Dose: 100 mg Ephedrine Sulfate (Ephedrine Sulfate) 5 mg IVPUSH SEECOMMENT PRN PRN Reason: Other Lactated Ringer's (Ringers, Lactated) 1,000 mls @ 125 mls/hr IV ASDIRECTED AGUSTIN Last Admin: 07/21/18 00:27 Dose: 125 mls/hr Tranexamic Acid 1,000 mg/ (Sodium Chloride) 110 mls @ 660 mls/hr IV ONETIME PRN PRN Reason: Bleeding Ibuprofen (Motrin) 800 mg PO Q8H PRN PRN Reason: mild pain or fever Last Admin: 07/23/18 02:48 Dose: 800 mg Ondansetron HCl (Zofran) 4 mg IV Q4H PRN PRN Reason: Nausea/Vomiting Oxycodone/Acetaminophen (Percocet 325-5 Mg) 1 tab PO Q4H PRN PRN Reason: Pain (moderate 4-6) Last Admin: 07/20/18 22:07 Dose: 1 tab Oxycodone/Acetaminophen (Percocet 325-5 Mg) 2 tab PO Q4H PRN PRN Reason: Pain (moderate 4-6) Last Admin: 07/23/18 02:48 Dose: 2 tab Prenat Multivit/[place]/Iron/Folic Ac ( Plus Iron) 1 each PO DAILY [facility] Last Admin: 07/22/18 08:53 Dose: 1 each Simethicone (Simethicone) 160 mg PO QID [facility] Last Admin: 07/22/18 21:03 Dose: 160 mg Discontinued Medications Acetaminophen (Tylenol) 650 mg PO Q4H PRN PRN Reason: Pain (Mild 1-3) and fever Bupivacaine HCl/Dextrose (Marcaine 0.75% Spinal) Confirm Administered Dose 2 ml .ROUTE .STK-MED ONE Stop: 07/20/18 13:22 Last Admin: 07/20/18 15:00 Dose: Not Given Bupivacaine HCl/Dextrose (Marcaine 0.75% Spinal) 1.7 ml .XX .STK-MED ONE Stop: 07/21/18 14:58 Bupivacaine HCl/Dextrose (Marcaine 0.75% Spinal) 1.2 ml .XX .STK-MED ONE Stop: 07/21/18 14:58 Bupivacaine HCl/Dextrose (Marcaine 0.75% Spinal) 0.75 ml .XX .STK-MED ONE Stop: 07/21/18 16:47 Carboprost Tromethamine (Hemabate Ds) 250 mcg IM ASDIRECTED PRN PRN Reason: HEMORRHAGE Carboprost Tromethamine (Hemabate Ds) 250 mcg IM ONETIME ONE Stop: 07/20/18 21:52 Last Admin: 07/21/18 05:59 Dose: Not Given Citric Acid/Sodium Citrate (Bicitra Solution) 30 ml PO ONETIME ONE Stop: 07/20/18 17:04 Epinephrine HCl (Adrenalin) Confirm Administered Dose 1 mg .ROUTE .STK-MED ONE Stop: 07/20/18 07:05 Last Admin: 07/20/18 08:07 Dose: Not Given Epinephrine HCl (Adrenalin) Confirm Administered Dose 1 mg .ROUTE .STK-MED ONE Stop: 07/20/18 13:22 Last Admin: 07/20/18 15:00 Dose: Not Given Epinephrine HCl (Adrenalin) 0.1 mg .XX .STK-MED ONE Stop: 07/21/18 14:58 Epinephrine HCl (Adrenalin) 0.1 mg .XX .STK-MED ONE Stop: 07/21/18 16:47 Fentanyl (Sublimaze) 50 mcg IVPUSH Q1H PRN PRN Reason: Pain (moderate 4-6) Fentanyl (Sublimaze) Confirm Administered Dose 100 mcg .ROUTE .STK-MED ONE Stop: 07/20/18 07:05 Last Admin: 07/20/18 08:08 Dose: Not Given Fentanyl (Sublimaze) 30 mcg ITHECAL .STK-MED ONE Stop: 07/21/18 16:47 Lactated Ringer's (Ringers, Lactated) 1,000 mls @ 125 mls/hr IV ASDIRECTED AGUSTIN Last Admin: 07/20/18 17:07 Dose: 125 mls/hr Lactated Ringer's (Ringers, Lactated) 1,000 mls @ 999 mls/hr IV .BOLUS ONE Stop: 07/20/18 05:04 Lactated Ringer's (Ringers, Lactated) 1,000 mls @ 125 mls/hr IV ASDIRECTED AGUSTIN Oxytocin/Sodium Chloride (Pitocin In Ns 30 Unit/500 Ml) 30 unit in 500 mls @ 2 mls/hr IV TITRATE AGUSTIN; Protocol Last Titration: 07/20/18 17:15 Dose: 0 munits/min, 0 mls/hr Tranexamic Acid 1,000 mg/ (Sodium Chloride) 110 mls @ 660 mls/hr IV ONETIME PRN PRN Reason: Bleeding Oxytocin/Sodium Chloride (Pitocin In Ns 30 Unit/500 Ml) 30 unit in 500 mls @ 2 mls/hr IV TITRATE AGUSTIN; Protocol Last Titration: 07/20/18 21:40 Dose: 0 mls/hr Tranexamic Acid 1,000 mg/ (Sodium Chloride) 110 mls @ 660 mls/hr IV ONETIME PRN PRN Reason: Bleeding Cefazolin Sodium/Dextrose 2 gm (/ Premix) 50 mls @ 100 mls/hr IV ONETIME ONE Stop: 07/20/18 17:32 Last Admin: 07/20/18 17:34 Dose: 100 mls/hr Lactated Ringer's (Ringers, Lactated) 1,000 mls @ 999 mls/hr IV .BOLUS [facility] Oxytocin/Sodium Chloride (Pitocin In Ns 30 Unit/500 Ml) Confirm Administered Dose 60 unit in 1,000 mls @ as directed .ROUTE .STK-MED ONE Stop: 07/20/18 17:20 Oxytocin/Sodium Chloride (Pitocin In Ns 30 Unit/500 Ml) 30 unit in 500 mls @ as directed IV .STK-MED ONE Stop: 07/21/18 10:47 Lactated Ringer's (Ringers, Lactated) 1,000 mls @ as directed IV .STK-MED ONE Stop: 07/21/18 14:58 Ketorolac Tromethamine (Toradol) 15 mg IVPUSH Q6H AGUSTIN Stop: 07/21/18 12:31 Last Admin: 07/21/18 13:08 Dose: 15 mg Ketorolac Tromethamine (Toradol) 30 mg IVPUSH .STK-MED ONE Stop: 07/21/18 14:58 Lidocaine HCl (Xylocaine-Mpf 1%) 30 ml INJECT ASDIRECTED PRN PRN Reason: Perineal Repair Lidocaine HCl (Xylocaine-Mpf 1%) 3 ml INJECT .STK-MED ONE Stop: 07/21/18 14:58 Lidocaine HCl (Xylocaine-Mpf 1%) 3 ml INJECT .STK-MED ONE Stop: 07/21/18 16:47 Methylergonovine Maleate (Methergine) 0.2 mg IM ASDIRECTED PRN PRN Reason: Hemorrhage Methylergonovine Maleate (Methergine) 0.2 mg IM ONETIME PRN PRN Reason: Excessive Vaginal Bleeding Misoprostol (Cytotec) 800 mcg RECTAL ASDIRECTED PRN PRN Reason: Hemorrhage Misoprostol (Cytotec) 800 mcg RECTAL ASDIRECTED PRN PRN Reason: Excessive bleeding Naloxone HCl (Narcan) 0.1 mg IVPUSH SEECOMMENT PRN PRN Reason: Respiratory Depression Ondansetron HCl (Zofran) 4 mg IV Q4H PRN PRN Reason: Nausea/Vomiting Ondansetron HCl (Zofran) 4 mg IV .STK-MED ONE Stop: 07/21/18 14:58 Sodium Chloride (Saline Flush) 10 ml FLUSH ASDIRECTED PRN PRN Reason: Keep Vein Open Sodium Chloride (Saline Flush) 10 ml FLUSH ASDIRECTED PRN PRN Reason: Keep Vein Open Sufentanil Citrate (Sufenta) Confirm Administered Dose 50 mcg .ROUTE .STK-MED ONE Stop: 07/20/18 07:05 Last Admin: 07/20/18 08:08 Dose: Not Given Sufentanil Citrate (Sufenta) Confirm Administered Dose 50 mcg .ROUTE .STK-MED ONE Stop: 07/20/18 13:22 Last Admin: 07/20/18 15:00 Dose: Not Given Sufentanil Citrate (Sufenta) 10 mcg ITHECAL .STK-MED ONE Stop: 07/21/18 14:58 Sufentanil Citrate (Sufenta) 25 mcg ITHECAL .STK-MED ONE Stop: 07/21/18 16:47 - My Orders Last 24 Hours: My Active Orders 07/22/18 14:51 Consult to Tracer Clerk [CONS] Routine 07/23/18 05:09 Bisacodyl [Dulcolax] 10 mg RECTAL DAILY PRN - Plan Plan:: Patient was personally seen and examined with the medical student. I reviewed the noted scribed on my behalf and necessary changes have been made to reflect my opinion on the history, exam, assessment, and plan. - Rosy Thomas MD
[2018-07-23] MEDS: Ibuprofen 800 MG Tab PO PRN ×2 (02:48→11:05)
[2018-07-23] MEDS: Acetaminophen/oxyCODONE 325-5 MG Tab PO PRN ×3 (02:48→14:01)
[2018-07-23] MEDS ORDERED: Bisacodyl 10 MG Supp RECTAL PRN (05:09)
[2018-07-23] MEDS: Prenatal Multivitamin with Calcium/Folic Acid/Iron Tab PO SCH (09:24)
[2018-07-23] MEDS: Docusate Sodium 100 MG Cap PO PRN (09:25)
[2018-07-23] MEDS: Simethicone 80 MG Tab.Chew PO SCH ×2 (09:25→14:01)
--- NOTE | 2018-07-24 12:38 | PCM.SN ---
- Free Text/Narrative Note: Progress Note/Discharge Summary Admit date: 07/20/18 Discharge date: 07/23/18 Delivering Physician: Dr. Thomas Admission Diagnoses: SROM at 37w0d Summary of Hospital Course: Purvi is a 28 y/o at 37w0d who presented to labor and delivery on 07/20/18 with SROM. She progressed in labor with augmentation of pitocin to 8/100/-2. However, when rechecked an hour later her exam revealed her cervix to be 6/100/- 3. Delivery options were discussed and the patient desired to proceed with section. She underwent primary low transverse section for failure to progress in labor and delivered a viable male infant. EBL was 500 mL. Preoperative hemoglobin was 11.8 gm/dL. Postoperative hemoglobin was 8.5 gm/ dL. The patient had an unremarkable postoperative course. By postoperative day 3 , the patient was doing well; ambulating, voiding, and tolerating general diet. Her pain was well controlled with oral pain medications, and was she was discharged to home. Discharge Exam: Vitals stable Gen: No distress CV: Well-perfused, 2+ distal pulses Resp: Non-Labored, symmetrical chest expansion Abd: Incision is clean, dry, and intact. Fundus is firm and below umbilicus. Ext: Moves all extremities. Discharge (or Final) Diagnoses: 1. Intrauterine at 37w0d 2. Primary low transverse section 3. Failure to progress in labor 4. SROM Discharge Details: Admission Condition: good Discharged Condition: good Disposition: Home Discharge Medications: Percocet Diet: regular diet Activity: no heavy lifting for 2 weeks, pelvic rest for 6 weeks. Follow-up with in 6 weeks for visit. Rosy Thomas MD
--- NOTE | 2018-07-24 12:42 | PCM.DEL ---
L & D Note - General Info Date of Service: 07/20/18 Mother's Due Date: 08/10/18 - Delivery Note Labor: Spontaneous, Augmented by Oxytocin Cervical Ripening Method: Oxytocin Delivery Outcome: Livebirth Delivery Method: Primary Presentation: Right Occiput Posterior (ROP) Nuchal Cord: Present Prep: Other (chlorhexidine) Anesthesia Type: Intrathecal, Spinal Amniotic Fluid Description: Clear Episiotomy Type: None Laceration: None Placenta: Intact, Manual Removal Cord: 3 Vessels : Stimulated Delivery Comments (Free Text/Narrative):: Purvi is a 28 y/o at 37w0d who presented to labor and delivery on 07/20/18 with SROM. She progressed in labor with augmentation of pitocin to 8/100/-2. However, when rechecked an hour later her exam revealed her cervix to be 6/100/- 3. Delivery options were discussed and the patient desired to proceed with section. She underwent primary low transverse section for failure to progress in labor and delivered a viable male infant. EBL was 500 mL. - General Info Date of Service: 07/20/18 Functional Status: Reports: Pain Controlled - Patient Data Vitals - Most Recent: Last Vital Signs Temp 99.0 F 07/23/18 08:00 Pulse 87 07/23/18 08:00 Resp 16 07/23/18 08:00 BP 114/73 07/23/18 08:00 Pulse Ox 99 07/23/18 08:00 Weight - Most Recent: 58.513 kg - Problem List Review Problem List Initiated/Reviewed/Updated: Yes
--- NOTE | 2018-07-24 13:15 | PCM.DCSUM1 ---
<Judi Joyce - Last Filed: 07/24/18 14:44> Discharge Summary - Hospital Course Free Text/Narrative:: Purvi is a 28 yo G1 now P1001 at 37w0d EGA who presented on 07/20/18 with leaking of fluid and subsequently found to have spontaneous rupture of membranes. Initially, NST revealed Category I strip. She was admitted to labor and delivery and labor was augmented with pitocin. She progressed through labor well, but FHT started to show minimal variability and large decelerations making it a category II strip. Made it to 8cm/0 station and then regressed to 6cm and -2 station. The decision was made to proceed with C/S secondary to nonreassuring heart tones and failure to progress. Patient tolerated procedure well and delivered a vigorous male with scores of 9 and 9 at 1 and 5 minutes respectively. Initiated and after some difficulty with latching, did well. She tolerated a normal diet well. On POD#1 was ambulating and passing flatus. On POD#3, had a BM. At time of discharge, is clinically improving and stable to go home. - Discharge Data Discharge Date: 07/23/18 Discharge Disposition: Home, Self-Care 01 Condition: Good - Discharge Diagnosis/Problem(s) (1) S/P section SNOMED Code(s): 292322446, [id number] ICD Code: Z98.891 - HISTORY OF UTERINE SCAR FROM PREVIOUS SURGERY Status: Acute (2) Anemia SNOMED Code(s): 190311728 ICD Code: D64.9 - ANEMIA, UNSPECIFIED Status: Acute Qualifiers: Anemia type: other cause - Patient Summary/Data Consults: Consultations 07/22/18 14:51 Consult to Catering Sous Chef [CONS] Routine - Patient Instructions Diet: Regular Diet as Tolerated Activity: As Tolerated, No Lifting Over 20 Pounds Driving: Do Not Drive Driving, Other: Do not drive for [address] while on narcotics. Showering/Bathing: May Shower Wound/Incision Care: Keep Operative Site/Wound Site Clean and Dry Notify Provider of: Fever, Increased Pain, Swelling and Redness, Drainage, Nausea and/or Vomiting - Discharge Plan *PRESCRIPTION DRUG MONITORING PROGRAM REVIEWED*: Yes *COPY OF PRESCRIPTION DRUG MONITORING REPORT IN PATIENT YOSELIN: Yes Home Medications: Home Meds PNV95/Ferrous Fumarate/FA [ Vitamin Tablet] 1 each PO DAILY 07/20/18 [ History] Acetaminophen [Tylenol] 650 mg PO Q6H PRN tablet 07/23/18 [Rx] Docusate Sodium [Colace] 100 mg PO Q12H PRN cap 07/23/18 [Rx] Simethicone 160 mg PO QID tab.chew 07/23/18 [Rx] Patient Handouts: Delivery, Care After, Home Care Instructions for Mom - Discharge Summary/Plan Comment DC Time >30 min.: No - General Info Date of Service: 07/23/18 Functional Status: Reports: Pain Controlled, Tolerating Diet, Ambulating, Urinating - Review of Systems General: Denies: Fever, Weakness HEENT: Denies: Headaches, Sore Throat, Visual Changes Pulmonary: Denies: Shortness of Breath, Cough, Wheezing Cardiovascular: Reports: Edema (pedal edema). Denies: Chest Pain Gastrointestinal: Reports: Flatus. Denies: Constipation, Difficulty Swallowing Genitourinary: Denies: Dysuria, Frequency, Burning, Pain Skin: Denies: Cyanosis Neurological: Denies: Dizziness, Headache - Patient Data Vitals - Most Recent: Last Vital Signs Temp 99.0 F 07/23/18 08:00 Pulse 87 07/23/18 08:00 Resp 16 07/23/18 08:00 BP 114/73 07/23/18 08:00 Pulse Ox 99 07/23/18 08:00 Weight - Most Recent: 58.513 kg Med Orders - Current: Current Medications Discontinued Medications Acetaminophen (Tylenol) 650 mg PO Q4H PRN PRN Reason: Pain (Mild 1-3) and fever Acetaminophen (Tylenol) 650 mg PO Q6H PRN PRN Reason: mild pain or fever Bisacodyl (Dulcolax) 10 mg RECTAL DAILY PRN PRN Reason: Constipation Last Admin: 07/23/18 05:51 Dose: 10 mg Bupivacaine HCl/Dextrose (Marcaine 0.75% Spinal) Confirm Administered Dose 2 ml .ROUTE .STK-MED ONE Stop: 07/20/18 13:22 Last Admin: 07/20/18 15:00 Dose: Not Given Bupivacaine HCl/Dextrose (Marcaine 0.75% Spinal) 1.7 ml .XX .STK-MED ONE Stop: 07/21/18 14:58 Bupivacaine HCl/Dextrose (Marcaine 0.75% Spinal) 1.2 ml .XX .STK-MED ONE Stop: 07/21/18 14:58 Bupivacaine HCl/Dextrose (Marcaine 0.75% Spinal) 0.75 ml .XX .STK-MED ONE Stop: 07/21/18 16:47 Calcium Carbonate/Glycine (Tums) 1,000 mg PO Q2H PRN PRN Reason: Heartburn Last Admin: 07/21/18 05:14 Dose: 1,000 mg Carboprost Tromethamine (Hemabate Ds) 250 mcg IM ASDIRECTED PRN PRN Reason: HEMORRHAGE Carboprost Tromethamine (Hemabate Ds) 250 mcg IM ONETIME ONE Stop: 07/20/18 21:52 Last Admin: 07/21/18 05:59 Dose: Not Given Citric Acid/Sodium Citrate (Bicitra Solution) 30 ml PO ONETIME ONE Stop: 07/20/18 17:04 Diphenhydramine HCl (Benadryl) 25 mg IVPUSH Q6H PRN PRN Reason: Itching or Nausea Docusate Sodium (Colace) 100 mg PO Q12H PRN PRN Reason: Constipation Last Admin: 07/23/18 09:25 Dose: 100 mg Ephedrine Sulfate (Ephedrine Sulfate) 5 mg IVPUSH SEECOMMENT PRN PRN Reason: Other Epinephrine HCl (Adrenalin) Confirm Administered Dose 1 mg .ROUTE .STK-MED ONE Stop: 07/20/18 07:05 Last Admin: 07/20/18 08:07 Dose: Not Given Epinephrine HCl (Adrenalin) Confirm Administered Dose 1 mg .ROUTE .STK-MED ONE Stop: 07/20/18 13:22 Last Admin: 07/20/18 15:00 Dose: Not Given Epinephrine HCl (Adrenalin) 0.1 mg .XX .STK-MED ONE Stop: 07/21/18 14:58 Epinephrine HCl (Adrenalin) 0.1 mg .XX .STK-MED ONE Stop: 07/21/18 16:47 Fentanyl (Sublimaze) 50 mcg IVPUSH Q1H PRN PRN Reason: Pain (moderate 4-6) Fentanyl (Sublimaze) Confirm Administered Dose 100 mcg .ROUTE .STK-MED ONE Stop: 07/20/18 07:05 Last Admin: 07/20/18 08:08 Dose: Not Given Fentanyl (Sublimaze) 30 mcg ITHECAL .STK-MED ONE Stop: 07/21/18 16:47 Lactated Ringer's (Ringers, Lactated) 1,000 mls @ 125 mls/hr IV ASDIRECTED AGUSTIN Last Admin: 07/20/18 17:07 Dose: 125 mls/hr Lactated Ringer's (Ringers, Lactated) 1,000 mls @ 999 mls/hr IV .BOLUS ONE Stop: 07/20/18 05:04 Lactated Ringer's (Ringers, Lactated) 1,000 mls @ 125 mls/hr IV ASDIRECTED AGUSTIN Oxytocin/Sodium Chloride (Pitocin In Ns 30 Unit/500 Ml) 30 unit in 500 mls @ 2 mls/hr IV TITRATE AGUSTIN; Protocol Last Titration: 07/20/18 17:15 Dose: 0 munits/min, 0 mls/hr Tranexamic Acid 1,000 mg/ (Sodium Chloride) 110 mls @ 660 mls/hr IV ONETIME PRN PRN Reason: Bleeding Oxytocin/Sodium Chloride (Pitocin In Ns 30 Unit/500 Ml) 30 unit in 500 mls @ 2 mls/hr IV TITRATE AGUSTIN; Protocol Last Titration: 07/20/18 21:40 Dose: 0 mls/hr Tranexamic Acid 1,000 mg/ (Sodium Chloride) 110 mls @ 660 mls/hr IV ONETIME PRN PRN Reason: Bleeding Cefazolin Sodium/Dextrose 2 gm (/ Premix) 50 mls @ 100 mls/hr IV ONETIME ONE Stop: 07/20/18 17:32 Last Admin: 07/20/18 17:34 Dose: 100 mls/hr Lactated Ringer's (Ringers, Lactated) 1,000 mls @ 999 mls/hr IV .BOLUS AGUSTIN Oxytocin/Sodium Chloride (Pitocin In Ns 30 Unit/500 Ml) Confirm Administered Dose 60 unit in 1,000 mls @ as directed .ROUTE .STK-MED ONE Stop: 07/20/18 17:20 Lactated Ringer's (Ringers, Lactated) 1,000 mls @ 125 mls/hr IV ASDIRECTED AGUSTIN Last Admin: 07/21/18 00:27 Dose: 125 mls/hr Tranexamic Acid 1,000 mg/ (Sodium Chloride) 110 mls @ 660 mls/hr IV ONETIME PRN PRN Reason: Bleeding Oxytocin/Sodium Chloride (Pitocin In Ns 30 Unit/500 Ml) 30 unit in 500 mls @ as directed IV .STK-MED ONE Stop: 07/21/18 10:47 Lactated Ringer's (Ringers, Lactated) 1,000 mls @ as directed IV .STK-MED ONE Stop: 07/21/18 14:58 Ibuprofen (Motrin) 800 mg PO Q8H PRN PRN Reason: mild pain or fever Last Admin: 07/23/18 11:05 Dose: 800 mg Ketorolac Tromethamine (Toradol) 15 mg IVPUSH Q6H AGUSTIN Stop: 07/21/18 12:31 Last Admin: 07/21/18 13:08 Dose: 15 mg Ketorolac Tromethamine (Toradol) 30 mg IVPUSH .STK-MED ONE Stop: 07/21/18 14:58 Lidocaine HCl (Xylocaine-Mpf 1%) 30 ml INJECT ASDIRECTED PRN PRN Reason: Perineal Repair Lidocaine HCl (Xylocaine-Mpf 1%) 3 ml INJECT .STK-MED ONE Stop: 07/21/18 14:58 Lidocaine HCl (Xylocaine-Mpf 1%) 3 ml INJECT .STK-MED ONE Stop: 07/21/18 16:47 Methylergonovine Maleate (Methergine) 0.2 mg IM ASDIRECTED PRN PRN Reason: Hemorrhage Methylergonovine Maleate (Methergine) 0.2 mg IM ONETIME PRN PRN Reason: Excessive Vaginal Bleeding Misoprostol (Cytotec) 800 mcg RECTAL ASDIRECTED PRN PRN Reason: Hemorrhage Misoprostol (Cytotec) 800 mcg RECTAL ASDIRECTED PRN PRN Reason: Excessive bleeding Naloxone HCl (Narcan) 0.1 mg IVPUSH SEECOMMENT PRN PRN Reason: Respiratory Depression Ondansetron HCl (Zofran) 4 mg IV Q4H PRN PRN Reason: Nausea/Vomiting Ondansetron HCl (Zofran) 4 mg IV Q4H PRN PRN Reason: Nausea/Vomiting Ondansetron HCl (Zofran) 4 mg IV .STK-MED ONE Stop: 07/21/18 14:58 Oxycodone/Acetaminophen (Percocet 325-5 Mg) 1 tab PO Q4H PRN PRN Reason: Pain (moderate 4-6) Last Admin: 07/20/18 22:07 Dose: 1 tab Oxycodone/Acetaminophen (Percocet 325-5 Mg) 2 tab PO Q4H PRN PRN Reason: Pain (moderate 4-6) Last Admin: 07/23/18 14:01 Dose: 2 tab Prenat Multivit/Johnson/Iron/Folic Ac ( Plus Iron) 1 each PO DAILY [facility] Last Admin: 07/23/18 09:24 Dose: 1 each Simethicone (Simethicone) 160 mg PO QID [facility] Last Admin: 07/23/18 14:01 Dose: Not Given Sodium Chloride (Saline Flush) 10 ml FLUSH ASDIRECTED PRN PRN Reason: Keep Vein Open Sodium Chloride (Saline Flush) 10 ml FLUSH ASDIRECTED PRN PRN Reason: Keep Vein Open Sufentanil Citrate (Sufenta) Confirm Administered Dose 50 mcg .ROUTE .STK-MED ONE Stop: 07/20/18 07:05 Last Admin: 07/20/18 08:08 Dose: Not Given Sufentanil Citrate (Sufenta) Confirm Administered Dose 50 mcg .ROUTE .STK-MED ONE Stop: 07/20/18 13:22 Last Admin: 07/20/18 15:00 Dose: Not Given Sufentanil Citrate (Sufenta) 10 mcg ITHECAL .STK-MED ONE Stop: 07/21/18 14:58 Sufentanil Citrate (Sufenta) 25 mcg ITHECAL .STK-MED ONE Stop: 07/21/18 16:47 - Exam General: Reports: Alert, Oriented HEENT: Reports: EOMI, Mucous Membr. Moist/[place] Neck: Reports: Supple Lungs: Reports: Clear to Auscultation, Normal Respiratory Effort Cardiovascular: Reports: Regular Rate, Regular Rhythm GI/Abdominal Exam: Normal Bowel Sounds, Soft, Non-Tender, No Organomegaly (Female) Exam: Fundal Height (Firm at the level of the umbilicus) Extremities: Normal Inspection, Normal Capillary Refill, Pedal Edema. No: Lindsay 's Sign Skin: Reports: Warm, Dry Wound/Incisions: Reports: Healing Well Neurological: Reports: No New Focal Deficit Psy/Mental Status: Reports: Alert, Normal Affect, Normal Mood Discharge Operative/Procedures - Procedures Performed Operations: Primary Section <Rosy Thomas - Last Filed: 07/25/18 12:04> Discharge Summary - Patient Summary/Data Consults: Consultations 07/22/18 14:51 Consult to Catering Sous Chef [CONS] Routine - Discharge Summary/Plan Comment Discharge Summary/Plan Comment: Patient was personally seen and examined with the medical student. I reviewed the noted scribed on my behalf and necessary changes have been made to reflect my opinion on the history, exam, assessment, and plan. - Roys Thomas MD - Patient Data Vitals - Most Recent: Last Vital Signs Temp 99.0 F 07/23/18 08:00 Pulse 87 07/23/18 08:00 Resp 16 07/23/18 08:00 BP 114/73 07/23/18 08:00 Pulse Ox 99 07/23/18 08:00 Med Orders - Current: Current Medications Discontinued Medications Acetaminophen (Tylenol) 650 mg PO Q4H PRN PRN Reason: Pain (Mild 1-3) and fever Acetaminophen (Tylenol) 650 mg PO Q6H PRN PRN Reason: mild pain or fever Bisacodyl (Dulcolax) 10 mg RECTAL DAILY PRN PRN Reason: Constipation Last Admin: 07/23/18 05:51 Dose: 10 mg Bupivacaine HCl/Dextrose (Marcaine 0.75% Spinal) Confirm Administered Dose 2 ml .ROUTE .STK-MED ONE Stop: 07/20/18 13:22 Last Admin: 07/20/18 15:00 Dose: Not Given Bupivacaine HCl/Dextrose (Marcaine 0.75% Spinal) 1.7 ml .XX .STK-MED ONE Stop: 07/21/18 14:58 Bupivacaine HCl/Dextrose (Marcaine 0.75% Spinal) 1.2 ml .XX .STK-MED ONE Stop: 07/21/18 14:58 Bupivacaine HCl/Dextrose (Marcaine 0.75% Spinal) 0.75 ml .XX .STK-MED ONE Stop: 07/21/18 16:47 Calcium Carbonate/Glycine (Tums) 1,000 mg PO Q2H PRN PRN Reason: Heartburn Last Admin: 07/21/18 05:14 Dose: 1,000 mg Carboprost Tromethamine (Hemabate Ds) 250 mcg IM ASDIRECTED PRN PRN Reason: HEMORRHAGE Carboprost Tromethamine (Hemabate Ds) 250 mcg IM ONETIME ONE Stop: 07/20/18 21:52 Last Admin: 07/21/18 05:59 Dose: Not Given Citric Acid/Sodium Citrate (Bicitra Solution) 30 ml PO ONETIME ONE Stop: 07/20/18 17:04 Diphenhydramine HCl (Benadryl) 25 mg IVPUSH Q6H PRN PRN Reason: Itching or Nausea Docusate Sodium (Colace) 100 mg PO Q12H PRN PRN Reason: Constipation Last Admin: 07/23/18 09:25 Dose: 100 mg Ephedrine Sulfate (Ephedrine Sulfate) 5 mg IVPUSH SEECOMMENT PRN PRN Reason: Other Epinephrine HCl (Adrenalin) Confirm Administered Dose 1 mg .ROUTE .STK-MED ONE Stop: 07/20/18 07:05 Last Admin: 07/20/18 08:07 Dose: Not Given Epinephrine HCl (Adrenalin) Confirm Administered Dose 1 mg .ROUTE .STK-MED ONE Stop: 07/20/18 13:22 Last Admin: 07/20/18 15:00 Dose: Not Given Epinephrine HCl (Adrenalin) 0.1 mg .XX .STK-MED ONE Stop: 07/21/18 14:58 Epinephrine HCl (Adrenalin) 0.1 mg .XX .STK-MED ONE Stop: 07/21/18 16:47 Fentanyl (Sublimaze) 50 mcg IVPUSH Q1H PRN PRN Reason: Pain (moderate 4-6) Fentanyl (Sublimaze) Confirm Administered Dose 100 mcg .ROUTE .STK-MED ONE Stop: 07/20/18 07:05 Last Admin: 07/20/18 08:08 Dose: Not Given Fentanyl (Sublimaze) 30 mcg ITHECAL .STK-MED ONE Stop: 07/21/18 16:47 Lactated Ringer's (Ringers, Lactated) 1,000 mls @ 125 mls/hr IV ASDIRECTED AGUSTIN Last Admin: 07/20/18 17:07 Dose: 125 mls/hr Lactated Ringer's (Ringers, Lactated) 1,000 mls @ 999 mls/hr IV .BOLUS ONE Stop: 07/20/18 05:04 Lactated Ringer's (Ringers, Lactated) 1,000 mls @ 125 mls/hr IV ASDIRECTED AGUSTIN Oxytocin/Sodium Chloride (Pitocin In Ns 30 Unit/500 Ml) 30 unit in 500 mls @ 2 mls/hr IV TITRATE AGUSTIN; Protocol Last Titration: 07/20/18 17:15 Dose: 0 munits/min, 0 mls/hr Tranexamic Acid 1,000 mg/ (Sodium Chloride) 110 mls @ 660 mls/hr IV ONETIME PRN PRN Reason: Bleeding Oxytocin/Sodium Chloride (Pitocin In Ns 30 Unit/500 Ml) 30 unit in 500 mls @ 2 mls/hr IV TITRATE AGUSTIN; Protocol Last Titration: 07/20/18 21:40 Dose: 0 mls/hr Tranexamic Acid 1,000 mg/ (Sodium Chloride) 110 mls @ 660 mls/hr IV ONETIME PRN PRN Reason: Bleeding Cefazolin Sodium/Dextrose 2 gm (/ Premix) 50 mls @ 100 mls/hr IV ONETIME ONE Stop: 07/20/18 17:32 Last Admin: 07/20/18 17:34 Dose: 100 mls/hr Lactated Ringer's (Ringers, Lactated) 1,000 mls @ 999 mls/hr IV .BOLUS AGUSTIN Oxytocin/Sodium Chloride (Pitocin In Ns 30 Unit/500 Ml) Confirm Administered Dose 60 unit in 1,000 mls @ as directed .ROUTE .STK-MED ONE Stop: 07/20/18 17:20 Lactated Ringer's (Ringers, Lactated) 1,000 mls @ 125 mls/hr IV ASDIRECTED AGUSTIN Last Admin: 07/21/18 00:27 Dose: 125 mls/hr Tranexamic Acid 1,000 mg/ (Sodium Chloride) 110 mls @ 660 mls/hr IV ONETIME PRN PRN Reason: Bleeding Oxytocin/Sodium Chloride (Pitocin In Ns 30 Unit/500 Ml) 30 unit in 500 mls @ as directed IV .STK-MED ONE Stop: 07/21/18 10:47 Lactated Ringer's (Ringers, Lactated) 1,000 mls @ as directed IV .STK-MED ONE Stop: 07/21/18 14:58 Ibuprofen (Motrin) 800 mg PO Q8H PRN PRN Reason: mild pain or fever Last Admin: 07/23/18 11:05 Dose: 800 mg Ketorolac Tromethamine (Toradol) 15 mg IVPUSH Q6H AGUSTIN Stop: 07/21/18 12:31 Last Admin: 07/21/18 13:08 Dose: 15 mg Ketorolac Tromethamine (Toradol) 30 mg IVPUSH .STK-MED ONE Stop: 07/21/18 14:58 Lidocaine HCl (Xylocaine-Mpf 1%) 30 ml INJECT ASDIRECTED PRN PRN Reason: Perineal Repair Lidocaine HCl (Xylocaine-Mpf 1%) 3 ml INJECT .STK-MED ONE Stop: 07/21/18 14:58 Lidocaine HCl (Xylocaine-Mpf 1%) 3 ml INJECT .STK-MED ONE Stop: 07/21/18 16:47 Methylergonovine Maleate (Methergine) 0.2 mg IM ASDIRECTED PRN PRN Reason: Hemorrhage Methylergonovine Maleate (Methergine) 0.2 mg IM ONETIME PRN PRN Reason: Excessive Vaginal Bleeding Misoprostol (Cytotec) 800 mcg RECTAL ASDIRECTED PRN PRN Reason: Hemorrhage Misoprostol (Cytotec) 800 mcg RECTAL ASDIRECTED PRN PRN Reason: Excessive bleeding Naloxone HCl (Narcan) 0.1 mg IVPUSH SEECOMMENT PRN PRN Reason: Respiratory Depression Ondansetron HCl (Zofran) 4 mg IV Q4H PRN PRN Reason: Nausea/Vomiting Ondansetron HCl (Zofran) 4 mg IV Q4H PRN PRN Reason: Nausea/Vomiting Ondansetron HCl (Zofran) 4 mg IV .STK-MED ONE Stop: 07/21/18 14:58 Oxycodone/Acetaminophen (Percocet 325-5 Mg) 1 tab PO Q4H PRN PRN Reason: Pain (moderate 4-6) Last Admin: 07/20/18 22:07 Dose: 1 tab Oxycodone/Acetaminophen (Percocet 325-5 Mg) 2 tab PO Q4H PRN PRN Reason: Pain (moderate 4-6) Last Admin: 07/23/18 14:01 Dose: 2 tab Prenat Multivit/Johnson/Iron/Folic Ac ( Plus Iron) 1 each PO DAILY [facility] Last Admin: 07/23/18 09:24 Dose: 1 each Simethicone (Simethicone) 160 mg PO QID [facility] Last Admin: 07/23/18 14:01 Dose: Not Given Sodium Chloride (Saline Flush) 10 ml FLUSH ASDIRECTED PRN PRN Reason: Keep Vein Open Sodium Chloride (Saline Flush) 10 ml FLUSH ASDIRECTED PRN PRN Reason: Keep Vein Open Sufentanil Citrate (Sufenta) Confirm Administered Dose 50 mcg .ROUTE .STK-MED ONE Stop: 07/20/18 07:05 Last Admin: 07/20/18 08:08 Dose: Not Given Sufentanil Citrate (Sufenta) Confirm Administered Dose 50 mcg .ROUTE .STK-MED ONE Stop: 07/20/18 13:22 Last Admin: 07/20/18 15:00 Dose: Not Given Sufentanil Citrate (Sufenta) 10 mcg ITHECAL .STK-MED ONE Stop: 07/21/18 14:58 Sufentanil Citrate (Sufenta) 25 mcg ITHECAL .STK-MED ONE Stop: 07/21/18 16:47
== END 2018-07-23 14:45 | disposition home or self-care (01) | DRG 787 ==
LOC: DL.OBCHECK 01:46 → DL.OB 02:41 → OBSVTOIN 17:58 → DL.OB 17:58
PROVIDERS: ADMIT Family Medicine; ATTEND Family Medicine
PROC: 10D00Z1 Extraction of Products of Conception, Low, Open Approach (ICD-10-PCS; principal; 2018-07-20)
PROC: 3E0R3BZ Introduction of Anesthetic Agent into Spinal Canal, Percutaneous Approach (ICD-10-PCS; 2018-07-20)
DX: O62.2 Other uterine inertia (principal); D62 Acute posthemorrhagic anemia; O76 Abnormality in fetal heart rate and rhythm complicating labor and delivery; O69.81X0 Labor and delivery complicated by cord around neck, without compression, not applicable or unspecified; O99.02 Anemia complicating childbirth; O32.8XX0 Maternal care for other malpresentation of fetus, not applicable or unspecified; Z3A.37 37 weeks gestation of pregnancy; Z37.0 Single live birth
CPT/HCPCS: 01961; 01967; 36415; 51701; 59025; 83986; 84112; 85027; 86850; 86900; 86901; 87210; 94010; A9270-GY; J0171; J0690; J1885; J2001; J2405; J2590; J3010; J7120